=== PATIENT | female | born 1980 | race African-American/Black ===

== ENCOUNTER 2017-02-21 00:01 | Observation (INO) | payer SELFPAY ==
[~2017-02-21] VITALS: Ht 160 cm; Wt 56.7 kg
[2017-02-21] MEDS ORDERED: PNV1TABL76 MT (00:09)
[2017-02-21] MEDS ORDERED: DEXT 5%/LR + PITOCIN 20UNITS/L 1,000 ML IV SCH (00:11)
[2017-02-21] MEDS ORDERED: BENZOCAINE/LANOLIN/ALOE VERA SPRAY TOP PRN (00:15)
[2017-02-21] MEDS ORDERED: IBUPROFEN 400MG TABLET PO PRN (00:15)
[2017-02-21] MEDS ORDERED: LANOLIN OINT 0.25 GM TUBE TOP PRN (00:15)
[2017-02-21] MEDS ORDERED: RHO(D) IMMUNE GLOBULIN 300 MCG/SYR IM PRN (00:15)
[2017-02-21] MEDS ORDERED: IBUPROFEN 800MG TABLET PO PRN (00:15)
[2017-02-21] MEDS ORDERED: GLYCERIN/WITCH HAZEL LEAF MEDICATED PAD TOP PRN (00:15)
[2017-02-21] MEDS ORDERED: BISACODYL 10MG SUPP PR PRN (00:15)
[2017-02-21 00:52] LABS: BASOPHILS % 0.3 % (0.0-2.0); EOSINOPHILS % 0.2 % (0.0-5.0); HEMATOCRIT. 32.9 % (36.0-48.0); HEMOGLOBIN. 10.5 g/dL (12.0-16.0); LYMPHOCYTES % 21.1 % (20.0-50.0); MEAN CORPUSCULAR HEMOGLOBIN 25.1 pg (28.0-32.0); MEAN CORPUSCULAR VOLUME 78.4 fL (81.0-99.0); MEAN PLATELET VOLUME 8.8 fl (7.4-10.4); MONOCYTES % 5.6 % (2.0-8.0); NEUTROPHILS % 72.8 % (40.0-76.0); PLATELET 198 x1000/uL (130-400); RED CELL DISTRIBUTION WIDTH 18.1 % (11.6-14.6)
[2017-02-21] MEDS: ACETAMINOPHEN WITH CODEINE 300/30MG TABLET PO PRN ×2 (01:19→11:51)
[2017-02-21 02:30] VITALS: BP 103/67
[2017-02-21 03:13] LABS: CLARITY URINE TURBID (CLEAR); COLOR URINE RED (YELLOW); KETONES URINE NEGATIVE (NEGATIVE); LEUKOCYTE ESTERASE URINE 2+ (NEGATIVE); NITRITE URINE POSITIVE (NEGATIVE); OCCULT BLOOD URINE 3+ (NEGATIVE); PROTEIN URINE 2+ (NEGATIVE); SPECIFIC GRAVITY URINE 1.025 (1.005-1.030)
[2017-02-21 03:30] VITALS: BP 101/65
[2017-02-21 03:42] LABS: *AMPHETAMINES SCREEN URINE NEGATIVE (NEGATIVE); *BARBITURATES SCREEN URINE NEGATIVE (NEGATIVE); *BENZODIAZEPINES SCREEN URINE NEGATIVE (NEGATIVE); CANNABINOID URINE SCREEN NEGATIVE (NEGATIVE); METHADONE URINE SCREEN NEGATIVE (NEGATIVE); OPIATES URINE SCREEN NEGATIVE (NEGATIVE); PHENCYCLIDINE URINE SCREEN NEGATIVE (NEGATIVE)
[2017-02-21 03:43] LABS: *COCAINE SCREEN URINE PRESUMTIVE POSITIVE (NEGATIVE)
[2017-02-21 07:36] VITALS: BP 109/63
[2017-02-21 07:57] LABS: HEPATITIS B SURFACE ANTIGEN NEGATIVE; RUBELLA IGG 98.5 IU/mL (4.99-10)
[2017-02-21] MEDS ORDERED: PRENATAL VIT/FE FUMARATE/FA TABLET PO SCH (09:00)
[2017-02-21 15:37] VITALS: BP 100/54
== END 2017-02-21 18:31 | disposition left against medical advice (07) ==
LOC: L&D 00:01 → 7EST PP/OB 02:05
PROVIDERS: ADMIT Specialist; ATTEND Specialist
DX: G89.18 Other acute postprocedural pain (principal)
CPT/HCPCS: 36415; 80305; 80353; 81001; 85025; 86592; 86703; 86762; 86850; 86900; 86901; 87340; G0378; J2590

== ENCOUNTER 2018-03-10 05:47 | Inpatient (IN) | payer MEDICAID ==
[~2018-03-10] VITALS: Ht 160 cm; Wt 59.0 kg
[~2018-03-10 05:47] MED LIST: PNV1TABL76 MT
[2018-03-10] MEDS ORDERED: LACTATED RINGERS 1,000 ML IV SCH (06:00)
[2018-03-10] MEDS ORDERED: METHYLERGONOVINE MALEATE 0.2 MG/ML IM PRN ×2 (06:00→07:00)
[2018-03-10] MEDS ORDERED: OXYTOCIN 10 UNITS/ML 1ML IM NR (06:16)
[2018-03-10] MEDS ORDERED: LANOLIN OINT 0.25 GM TUBE TOP PRN (07:00)
[2018-03-10] MEDS ORDERED: IBUPROFEN 400MG TABLET PO PRN (07:00)
[2018-03-10] MEDS ORDERED: GLYCERIN/WITCH HAZEL LEAF MEDICATED PAD TOP PRN (07:00)
[2018-03-10] MEDS ORDERED: BENZOCAINE/LANOLIN/ALOE VERA SPRAY TOP PRN (07:00)
[2018-03-10] MEDS ORDERED: BISACODYL 10MG SUPP PR PRN (07:00)
[2018-03-10] MEDS ORDERED: IBUPROFEN 800MG TABLET PO PRN (07:00)
[2018-03-10] MEDS ORDERED: MISOPROSTOL 200MCG TABLET PO NR (07:15)
[2018-03-10 07:28] LABS: BASOPHILS % 0.5 % (0.0-2.0); EOSINOPHILS % 0.3 % (0.0-5.0); HEMATOCRIT. 32.6 % (36.0-48.0); HEMOGLOBIN. 10.5 g/dL (12.0-16.0); LYMPHOCYTES % 23.1 % (20.0-50.0); MEAN CORPUSCULAR HEMOGLOBIN 25.1 pg (28.0-32.0); MEAN CORPUSCULAR VOLUME 77.9 fL (81.0-99.0); MEAN PLATELET VOLUME 9.3 fl (7.4-10.4); MONOCYTES % 5.2 % (2.0-8.0); NEUTROPHILS % 70.9 % (40.0-76.0); PLATELET 194 x1000/uL (130-400); RED BLOOD CELL COUNT 4.18 mill/uL (4.2-5.4)
[2018-03-10 07:29] VITALS: BP 133/90
[2018-03-10 07:32] LABS: CLARITY URINE TURBID (CLEAR); COLOR URINE RED (YELLOW); KETONES URINE 2+ (NEGATIVE); LEUKOCYTE ESTERASE URINE 2+ (NEGATIVE); NITRITE URINE POSITIVE (NEGATIVE); OCCULT BLOOD URINE 3+ (NEGATIVE); PH URINE 6.5 (4.5-8.0); PROTEIN URINE 2+ (NEGATIVE); SPECIFIC GRAVITY URINE 1.024 (1.005-1.030)
[2018-03-10 07:47] LABS: *AMPHETAMINES SCREEN URINE NEGATIVE (NEGATIVE); *BARBITURATES SCREEN URINE NEGATIVE (NEGATIVE); *BENZODIAZEPINES SCREEN URINE NEGATIVE (NEGATIVE); METHADONE URINE SCREEN NEGATIVE (NEGATIVE)
[2018-03-10 07:48] LABS: CANNABINOID URINE SCREEN NEGATIVE (NEGATIVE); OPIATES URINE SCREEN NEGATIVE (NEGATIVE); PHENCYCLIDINE URINE SCREEN NEGATIVE (NEGATIVE)
[2018-03-10 07:48] LABS: CHLORIDE 109 mEq/L (98-107)
[2018-03-10 07:51] LABS: *COCAINE SCREEN URINE PRESUMTIVE POSITIVE (NEGATIVE)
[2018-03-10] MEDS ORDERED: MAGNESIUM/ALUMINUM HYDROXIDE/SIMETHICONE 30ML UDC PO SCH (09:00)
[2018-03-10] MEDS ORDERED: PRENATAL VIT/FE FUMARATE/FA TABLET PO SCH (09:00)
[2018-03-10 10:55] LABS: HEPATITIS B SURFACE ANTIGEN NEGATIVE
[2018-03-11] MEDS ORDERED: FERROUS SULFATE 325MG TABLET PO SCH (07:30)
[2018-03-18 04:10] LABS: COCAINE CONFIRMATION URINE Positive (.)
== END 2018-03-10 15:00 | disposition home or self-care (01) | DRG 560 ==
LOC: 8 EST LDRP 05:47 → OBSVTOIN 05:47 → 8EST 14:55
PROVIDERS: ADMIT Specialist; ATTEND Specialist
PROC: 10E0XZZ Delivery of Products of Conception, External Approach (ICD-10-PCS; principal; 2018-03-10)
DX: O62.3 Precipitate labor (principal); O86.20 Urinary tract infection following delivery, unspecified; O99.325 Drug use complicating the puerperium; F14.10 Cocaine abuse, uncomplicated; O90.81 Anemia of the puerperium; D64.9 Anemia, unspecified; Z37.0 Single live birth; Z3A.36 36 weeks gestation of pregnancy
CPT/HCPCS: 36415; 80305; 80353; 86703; 86762; 86850; 86900; 87077; 87186; 87340; 99281; G0378; J7120